=== PATIENT | male | born 1965 | race American Indian/Alaskan Native ===

== ENCOUNTER 2016-07-10 06:20 | Emergency (ER) | payer MEDICARE ==
[2016-07-10 06:48] VITALS: BP 164/112
--- NOTE | 2016-07-10 07:18 | XRay Report ---
RIGHT HAND, 2 views: History: Right hand injury, pain. Findings: No comparison. A comminuted fracture through the distal shaft of the second metacarpal is identified. There is approximately 35 degrees anterior angulation on the lateral image. No obvious extension to the second metacarpophalangeal joint. There is subtle callus formation at the fracture site consistent with a subacute fracture. The remaining bony structures and joint spaces are within normal limits. Diffuse soft tissue swelling. IMPRESSION: Subacute, comminuted fracture of the distal second metacarpal with anterior angulation as described. Consultation with orthopedics is recommended.
[2016-07-10 07:19] LABS: Basophils % (Auto) 0.8 % (0.0-1.8); Eosinophils % (Auto) 2.2 % (0.0-4.3); Hematocrit 40.1 % (35.5-45.6); Hemoglobin 13.3 gm/dl (11.8-15.2); Mean Corpuscular HGB Conc 33 % (32-34); Mean Corpuscular Hemoglobin 31 pg (28-32); Mean Corpuscular Volume 92 fl (84-94); Platelet Count 172 K/mm3 (140-440); Red Blood Count 4.36 M/mm3 (3.65-5.03); Red Cell Distribution Width 14.1 % (13.2-15.2)
--- NOTE | 2016-07-10 07:19 | XRay Report ---
ROUTINE CHEST, TWO VIEWS: HISTORY: Shortness of breath. No comparison. There is mild hyperinflation which could represent mild emphysematous changes or good inspiration. Heart size and pulmonary venous structures are borderline. No infiltrate, pleural effusion or pneumothorax. The bony structures are within normal limits. IMPRESSION: No acute cardiopulmonary process. Mild hyperinflation. Borderline heart size and pulmonary vascularity.
[2016-07-10 07:43] LABS: Anion Gap 17 mmol/L; Blood Urea Nitrogen 19 mg/dL (9-20); Calcium 8.8 mg/dL (8.4-10.2); Carbon Dioxide 24 mmol/L (22-30); Chloride 105.7 mmol/L (98-107); Glucose 84 mg/dL (75-100); Potassium 3.9 mmol/L (3.6-5.0); Sodium 143 mmol/L (137-145)
--- NOTE | 2016-07-10 14:02 | ED Elopement Review ---
ED Pt Elopement review - Results review Lab results: Laboratory Tests 07/10/16 07/10/16 07:06 07:06 WBC 6.0 RBC 4.36 Hgb 13.3 Hct 40.1 MCV 92 MCH 31 MCHC 33 RDW 14.1 Plt Count 172 Lymph % (Auto) 27.6 Hubbard % (Auto) 10.2 H Eos % (Auto) 2.2 Baso % (Auto) 0.8 Lymph # 1.6 Hubbard # 0.6 Eos # 0.1 Baso # 0.0 Seg Neutrophils % 59.2 Seg Neutrophils # 3.5 Sodium 143 Potassium 3.9 Chloride 105.7 Carbon Dioxide 24 Anion Gap 17 BUN 19 Creatinine 1.0 Estimated GFR > 60 BUN/Creatinine Ratio 19.00 Glucose 84 Calcium 8.8 Troponin T 0.024 - Call Back decision Pt Call Back Decision: Call pt to return to ED [facility] (hand x-ray reveals subacute , comminuted fracture of the distal second metacarpal with anterior angulation. Consultation with orthopedics as recommended.)
== END 2016-07-10 10:00 | disposition left against medical advice (07) ==
LOC: ED 06:20
DX: R06.02 Shortness of breath (principal); Z53.21 Procedure and treatment not carried out due to patient leaving prior to being seen by health care provider
CPT/HCPCS: 36415; 71020; 80048; 84484; 85025; 93005; 93010